=== PATIENT | female | born 1990 | race Caucasian/White ===

== ENCOUNTER 2022-06-29 16:00 | Outpatient (RCR) | payer MEDICAID, SELFPAY | END 2022-06-29 16:05 | disposition home or self-care (01) | LOC: PT 16:00 | PROVIDERS: Visit Provider Nurse Practitioner Family | DX: I89.0 Lymphedema, not elsewhere classified (principal); R60.0 Localized edema | CPT/HCPCS: 97113; 97140; 97163 ==

== ENCOUNTER 2023-02-17 16:00 | Outpatient (RCR) | payer MEDICAID, SELFPAY | END 2023-02-17 16:05 | disposition home or self-care (01) | LOC: PT 16:00 | PROVIDERS: Visit Provider Nurse Practitioner Family | DX: I89.0 Lymphedema, not elsewhere classified (principal); R60.9 Edema, unspecified | CPT/HCPCS: 97113; 97140; 97163; 97164 ==